=== PATIENT | female | born 1950 | race Caucasian/White ===

== ENCOUNTER 2019-07-12 14:52 | Emergency (ER) | payer MEDICARE, OTHER | END 2019-07-12 17:23 | disposition left against medical advice (07) | LOC: JD.ED 14:52 | DX: Z53.21 Procedure and treatment not carried out due to patient leaving prior to being seen by health care provider (principal) ==

== ENCOUNTER 2023-06-06 18:31 | Emergency (ER) | payer MEDICAID, MEDICARE ==
[2023-06-06 20:03] LABS: BASOPHILS ABSOLUTE AUTO 0.01 K/mm3 (0.01-0.08); BASOPHILS PERCENT AUTO 0.1 % (0.1-1.2); EOSINOPHILS ABSOLUTE AUTO 0.01 K/mm3 (0.04-0.36); EOSINOPHILS PERCENT AUTO 0.1 (0.7-5.8); HEMATOCRIT 40.7 % (34.1-44.9); HEMOGLOBIN 13.1 gm/dl (11.2-15.7); IMMATURE GRAN ABSOLUTE AUTO 0.01 K/mm3 (0.00-0.10); IMMATURE GRAN PERCENT AUTO 0.1 % (<=1.0); LYMPHOCYTES ABSOLUTE AUTO 1.08 K/mm3 (1.18-3.74); MEAN CORPUSCULAR HEMOGLOBIN 27.3 pg (25.6-32.2); MEAN CORPUSCULAR HGB CONC 32.2 g/dl (32.2-35.5); MEAN PLATELET VOLUME 9.9 fl (9.4-12.3); MONOCYTES ABSOLUTE AUTO 0.64 K/mm3 (0.24-0.36); MONOCYTES PERCENT AUTO 8.3 % (4.7-12.5); NEUTROPHILS ABSOLUTE AUTO 5.98 K/mm3 (1.56-6.13); NEUTROPHILS PERCENT AUTO 77.4 % (34.0-71.1); PLATELET COUNT,PLT 328 K/mm3 (182-369); RED BLOOD CELL COUNT 4.79 M/mm3 (3.98-5.22); WHITE BLOOD CELL COUNT,WBC 7.73 K/mm3 (3.98-10.04)
[2023-06-06 20:22] LABS: INR 1.02; PROTHROMBIN TIME 10.9 SECONDS (9.7-12.0)
[2023-06-06 20:24] LABS: PTT,PARTIAL THROMBOPLSTIN TIME 28.3 SECONDS (21.7-31.4)
[2023-06-06 20:27] LABS: A/G RATIO 0.7 (1-2); ALBUMIN 2.9 g/dl (3.4-5.0); ANION GAP 10.8 (5-15); BILIRUBIN TOTAL 0.2 mg/dL (0.2-1.0); CREATININE 0.9 mg/dL (0.55-1.02); EST CRCL DRUG DOSING (CG) 56.56 mL/min; MAGNESIUM 2.2 mg/dL (1.8-2.4); POTASSIUM,K 3.8 mEq/L (3.5-5.1); PROTEIN TOTAL,TP 6.8 g/dl (6.4-8.2)
[2023-06-06 21:02] LABS: D-DIMER QUANTITATIVE 0.94 mg/L (0.19-0.50)
[2023-06-06] MEDS ORDERED: Iopamidol 755 Mg/ML 100 ML Bottle IVPUSH ONE (22:56)
[2023-06-06] MEDS: Sodium Chloride 0.9% 100 ML IV SCH ×2 (22:57→23:31)
== END 2023-06-07 01:51 | disposition home or self-care (01) ==
LOC: JD.ED 18:31
DX: R42 Dizziness and giddiness (principal); R55 Syncope and collapse; J44.9 Chronic obstructive pulmonary disease, unspecified; I25.2 Old myocardial infarction; F17.210 Nicotine dependence, cigarettes, uncomplicated; Z88.6 Allergy status to analgesic agent; Z91.040 Latex allergy status; Z79.51 Long term (current) use of inhaled steroids; Z79.899 Other long term (current) drug therapy
CPT/HCPCS: 36415; 70450; 71045; 71275; 80053; 83735; 84484; 85025; 85379; 85610; 85730; 93005; 96360; 99284; J3490; Q9967; 93010

== ENCOUNTER 2024-10-02 22:12 | Inpatient (IN) | payer MEDICARE, MEDICAID ==
[2024-10-02 22:28] LABS: BASOPHILS ABSOLUTE AUTO 0.1 K/mm3 (0.0-0.2); BASOPHILS PERCENT AUTO 0.6 % (0.0-1.0); EOSINOPHILS ABSOLUTE AUTO 0.1 K/mm3 (0.0-0.4); EOSINOPHILS PERCENT AUTO 0.7 % (0.0-6.0); HEMATOCRIT 32.3 % (37.0-47.0); HEMOGLOBIN 10.2 gm/dl (12.0-16.0); IMMATURE GRAN ABSOLUTE AUTO 0.05 K/mm3 (0.00-0.05); IMMATURE GRAN PERCENT AUTO 0.5 % (0.0-0.4); LYMPHOCYTES ABSOLUTE AUTO 1.9 K/mm3 (1.0-4.8); LYMPHOCYTES PERCENT AUTO 18.1 % (24.0-44.0); MEAN CORPUSCULAR HEMOGLOBIN 28.8 pg (28.0-32.0); MEAN CORPUSCULAR HGB CONC 31.6 g/dl (32.0-36.0); MEAN CORPUSCULAR VOLUME 91.2 fl (83.0-99.0); MEAN PLATELET VOLUME 10.7 fl (9.4-12.3); MONOCYTES ABSOLUTE AUTO 0.7 K/mm3 (0.0-0.8); MONOCYTES PERCENT AUTO 6.6 % (0.0-8.0); NEUTROPHILS ABSOLUTE AUTO 7.9 K/mm3 (1.8-7.7); NEUTROPHILS PERCENT AUTO 73.5 % (41.0-71.0); PLATELET COUNT,PLT 206 K/mm3 (150-400); RED BLOOD CELL COUNT 3.54 M/mm3 (4.10-5.30); WHITE BLOOD CELL COUNT,WBC 10.68 K/mm3 (3.9-11.3)
[2024-10-02 22:46] LABS: INR 1.15; PROTHROMBIN TIME 12.1 SECONDS (9.7-12.0)
[2024-10-02 22:47] LABS: PTT,PARTIAL THROMBOPLSTIN TIME 24.7 SECONDS (21.7-31.4)
[2024-10-02 22:57] LABS: ALBUMIN 2.8 g/dl (3.4-5.0); ANION GAP 16.6 (5-15); BILIRUBIN TOTAL 0.7 mg/dL (0.2-1.0); CREATININE 1.5 mg/dL (0.55-1.02); EST CRCL DRUG DOSING (CG) 30.95 mL/min; MAGNESIUM 1.9 mg/dL (1.8-2.4); POTASSIUM,K 3.6 mEq/L (3.5-5.1); PROTEIN TOTAL,TP 5.5 g/dl (6.4-8.2)
[2024-10-02] MEDS: Sodium Chloride 0.9% 1,000 ML IV ONE (22:59)
[2024-10-02] MEDS: Iopamidol 755 Mg/ML 100 ML Bottle IVPUSH ONE (23:16)
[2024-10-03] MEDS: Sodium Chloride 0.9% 1,000 ML IV ONE (01:24)
[2024-10-03] MEDS: Sodium Chloride 0.9% 1,000 ML IV SCH ×2 (01:28→21:21)
[2024-10-03 03:40] LABS: APPEARANCE,URINE CLOUDY (Clear); BILIRUBIN,URINE NEGATIVE (Negative); COLOR,URINE YELLOW (Yellow); GLUCOSE,URINE NEGATIVE (Negative); KETONES,URINE NEGATIVE (Negative); LEUKOCYTE ESTERASE,URINE 1+ (Negative); NITRITE,URINE NEGATIVE (Negative); OCCULT BLOOD,URINE TRACE-INTACT (Negative); PH,URINE 5.5 (5.0-8.0); PROTEIN,URINE 1+ (Negative); UROBILINOGEN,URINE 0.2 (0.2-1.0)
[2024-10-03 03:47] LABS: RBC,URINE 0-5 /hpf (0-5); WBC,URINE 20-30 /hpf (0-5)
[2024-10-03 03:48] LABS: BACTERIA,URINE MANY /hpf (FEW); MUCUS,URINE NOT SEEN /hpf (FEW)
[2024-10-03] MEDS ORDERED: Sodium Chloride 0.9% 250 ML IV SCH (06:15)
[2024-10-03] MEDS ORDERED: Clopidogrel 75 MG Tab PO SCH (09:15)
[2024-10-03] MEDS ORDERED: cefTRIAXone 1 GM in Sodium Chloride 0.9% 50 ML IV SCH (09:15)
[2024-10-03] MEDS: Venlafaxine 75 MG Cap.ER PO SCH (10:41)
[2024-10-03] MEDS: cefTRIAXone 1 GM Vial IV SCH (10:41)
[2024-10-03 10:56] LABS: ANION GAP 9.6 (5-15); BUN/CREATININE RATIO 22.5 (14-18); CREATININE 1.2 mg/dL (0.55-1.02); EST CRCL DRUG DOSING (CG) 38.3 mL/min; POTASSIUM,K 3.6 mEq/L (3.5-5.1)
[2024-10-03] MEDS: Acetaminophen 325 MG Tab PO PRN (12:12)
[2024-10-03] MEDS: Gabapentin 300 MG Cap PO SCH (14:26)
[2024-10-03] MEDS: Clopidogrel 75 MG Tab PO SCH (14:26)
[2024-10-03 15:45] LABS: TSH 0.369 uIU/mL (0.358-3.74)
[2024-10-03] MEDS: amLODIPine 5 MG Tab PO SCH (21:25)
[2024-10-03] MEDS: Losartan 50 MG Tab PO SCH (21:25)
[2024-10-03] MEDS ORDERED: traZODone 50 MG Tab PO SCH (21:45)
[2024-10-03] MEDS: traZODone 50 MG Tab PO SCH (23:01)
[2024-10-04 04:39] LABS: BASOPHILS PERCENT AUTO 0.2 % (0.0-1.0); EOSINOPHILS ABSOLUTE AUTO 0.1 K/mm3 (0.0-0.4); EOSINOPHILS PERCENT AUTO 0.7 % (0.0-6.0); HEMATOCRIT 21.7 % (37.0-47.0); IMMATURE GRAN ABSOLUTE AUTO 0.04 K/mm3 (0.00-0.05); IMMATURE GRAN PERCENT AUTO 0.4 % (0.0-0.4); LYMPHOCYTES ABSOLUTE AUTO 1.3 K/mm3 (1.0-4.8); LYMPHOCYTES PERCENT AUTO 12.4 % (24.0-44.0); MEAN CORPUSCULAR HEMOGLOBIN 29.3 pg (28.0-32.0); MEAN CORPUSCULAR HGB CONC 32.7 g/dl (32.0-36.0); MEAN CORPUSCULAR VOLUME 89.7 fl (83.0-99.0); MEAN PLATELET VOLUME 11.2 fl (9.4-12.3); MONOCYTES ABSOLUTE AUTO 0.8 K/mm3 (0.0-0.8); MONOCYTES PERCENT AUTO 7.6 % (0.0-8.0); NEUTROPHILS PERCENT AUTO 78.7 % (41.0-71.0); PLATELET COUNT,PLT 140 K/mm3 (150-400); RED BLOOD CELL COUNT 2.42 M/mm3 (4.10-5.30)
[2024-10-04 05:01] LABS: ALBUMIN 2.4 g/dl (3.4-5.0); ANION GAP 9.5 (5-15); BILIRUBIN TOTAL 0.6 mg/dL (0.2-1.0); BUN/CREATININE RATIO 27.8 (14-18); CALCIUM 7.6 mg/dL (8.5-10.1); CREATININE 0.9 mg/dL (0.55-1.02); EST CRCL DRUG DOSING (CG) 51.07 mL/min; POTASSIUM,K 3.5 mEq/L (3.5-5.1); PROTEIN TOTAL,TP 4.9 g/dl (6.4-8.2)
[2024-10-04 05:44] LABS: HEMOGLOBIN 7.1 gm/dl (12.0-16.0)
[2024-10-04] MEDS: Levothyroxine 75 MCG Tab PO SCH (06:49)
[2024-10-04] MEDS ORDERED: Enoxaparin 30 MG/0.3 ML Syringe SUBCUT SCH (09:00)
[2024-10-04] MEDS: Enoxaparin 40 MG/0.4 ML Syringe SUBCUT SCH (09:00)
[2024-10-04] MEDS: Rosuvastatin 10 MG Tab PO SCH (10:46)
[2024-10-04 11:50] LABS: HEMATOCRIT 22.4 % (37.0-47.0)
[2024-10-04 11:54] LABS: HEMOGLOBIN 7.1 gm/dl (12.0-16.0)
[2024-10-04] MEDS ORDERED: LORazepam 1 MG Tab PO ONE (13:44)
[2024-10-04] MEDS: LORazepam 2 MG/ML SDV IVPUSH ONE ×2 (13:55→15:00)
[2024-10-04] MEDS ORDERED: Sodium Chloride 0.9% 10 ML Syringe FLUSH SCH (14:00)
[2024-10-04] MEDS ORDERED: LORazepam 0.5 MG Tab PO ONE (14:00)
[2024-10-04 18:31] LABS: HEMATOCRIT 20.9 % (37.0-47.0)
[2024-10-04 18:36] LABS: HEMOGLOBIN 6.7 gm/dl (12.0-16.0)
[2024-10-04] MEDS: Gadobenate Dimeglumine 529 MG/ML 15 ML SDV IVPUSH ONE (21:03)
[2024-10-05 07:23] LABS: BASOPHILS PERCENT AUTO 0.5 % (0.0-1.0); EOSINOPHILS ABSOLUTE AUTO 0.2 K/mm3 (0.0-0.4); HEMATOCRIT 26.2 % (37.0-47.0); IMMATURE GRAN ABSOLUTE AUTO 0.03 K/mm3 (0.00-0.05); IMMATURE GRAN PERCENT AUTO 0.4 % (0.0-0.4); LYMPHOCYTES ABSOLUTE AUTO 1.2 K/mm3 (1.0-4.8); MEAN CORPUSCULAR HEMOGLOBIN 29.2 pg (28.0-32.0); MEAN CORPUSCULAR HGB CONC 32.4 g/dl (32.0-36.0); MEAN PLATELET VOLUME 11.4 fl (9.4-12.3); MONOCYTES ABSOLUTE AUTO 0.7 K/mm3 (0.0-0.8); MONOCYTES PERCENT AUTO 9.1 % (0.0-8.0); NEUTROPHILS ABSOLUTE AUTO 5.5 K/mm3 (1.8-7.7); PLATELET COUNT,PLT 118 K/mm3 (150-400); RED BLOOD CELL COUNT 2.91 M/mm3 (4.10-5.30); WHITE BLOOD CELL COUNT,WBC 7.69 K/mm3 (3.9-11.3)
[2024-10-05 07:32] LABS: A/G RATIO 0.9 (1-2); ALBUMIN 2.5 g/dl (3.4-5.0); ANION GAP 8.5 (5-15); BILIRUBIN TOTAL 1.5 mg/dL (0.2-1.0); CALCIUM 8.1 mg/dL (8.5-10.1); CREATININE 0.7 mg/dL (0.55-1.02); EST CRCL DRUG DOSING (CG) 66.33 mL/min; POTASSIUM,K 3.5 mEq/L (3.5-5.1); PROTEIN TOTAL,TP 5.4 g/dl (6.4-8.2)
[2024-10-05 07:37] LABS: IRON,FE 31 ug/dL (50-170); PERCENT FE SATURATION 19 % (20-55); TOTAL IRON BINDING CAPACITY 165 ug/dL (100-400); TRANSFERRIN 132 mg/dL (202-364)
[2024-10-05 07:46] LABS: HEMOGLOBIN 8.5 gm/dl (12.0-16.0)
[2024-10-05] MEDS: Sodium Ferric Gluconate Cmplex 125 MG in Sodium Chloride 0.9% 100 ML IV ONE (10:19)
[2024-10-05] MEDS: Gadobenate Dimeglumine 529 MG/ML 15 ML SDV IVPUSH ONE (11:57)
[2024-10-05] MEDS: Sodium Chloride 0.9% 10 ML Syringe FLUSH ONE (11:58)
[2024-10-05] MEDS ORDERED: Meclizine 25 MG Tab PO PRN (19:21)
[2024-10-06 08:30] LABS: BASOPHILS ABSOLUTE AUTO 0.1 K/mm3 (0.0-0.2); BASOPHILS PERCENT AUTO 0.7 % (0.0-1.0); EOSINOPHILS ABSOLUTE AUTO 0.2 K/mm3 (0.0-0.4); EOSINOPHILS PERCENT AUTO 2.5 % (0.0-6.0); HEMATOCRIT 23.8 % (37.0-47.0); HEMOGLOBIN 8.3 gm/dl (12.0-16.0); IMMATURE GRAN ABSOLUTE AUTO 0.05 K/mm3 (0.00-0.05); IMMATURE GRAN PERCENT AUTO 0.7 % (0.0-0.4); LYMPHOCYTES ABSOLUTE AUTO 1.4 K/mm3 (1.0-4.8); LYMPHOCYTES PERCENT AUTO 18.4 % (24.0-44.0); MEAN CORPUSCULAR HEMOGLOBIN 29.4 pg (28.0-32.0); MEAN CORPUSCULAR HGB CONC 34.9 g/dl (32.0-36.0); MEAN CORPUSCULAR VOLUME 84.4 fl (83.0-99.0); MEAN PLATELET VOLUME 10.8 fl (9.4-12.3); MONOCYTES ABSOLUTE AUTO 0.6 K/mm3 (0.0-0.8); MONOCYTES PERCENT AUTO 7.3 % (0.0-8.0); NEUTROPHILS ABSOLUTE AUTO 5.3 K/mm3 (1.8-7.7); NEUTROPHILS PERCENT AUTO 70.4 % (41.0-71.0); PLATELET COUNT,PLT 162 K/mm3 (150-400); RED BLOOD CELL COUNT 2.82 M/mm3 (4.10-5.30); WHITE BLOOD CELL COUNT,WBC 7.55 K/mm3 (3.9-11.3)
[2024-10-06] MEDS: Polyethylene Glycol 3350 Powder 17 GM Packet PO PRN (08:57)
[2024-10-06] MEDS: Iron Polysaccharides Complex 150 MG Cap PO SCH (09:39)
[2024-10-06] MEDS ORDERED: Acetaminophen 325 MG Tab PO ONE (10:32)
[2024-10-06] MEDS: Cholecalciferol (Vitamin D3) 5,000 UNIT Cap PO SCH (11:40)
[2024-10-08] MEDS: Cefdinir 300 MG Cap PO SCH (08:48)
[2024-10-08] MEDS ORDERED: Cefdinir 125 MG/5 ML Susp 100 ML Bottle PO SCH (09:00)
[2024-10-08] MEDS: Clopidogrel 75 MG Tab PO SCH (13:55)
[2024-10-08] MEDS: Nicotine 14 MG/24 Hr Patch TRDERM SCH (18:36)
[2024-10-09 11:32] LABS: MEAN CORPUSCULAR HEMOGLOBIN 29.6 pg (28.0-32.0); MEAN CORPUSCULAR HGB CONC 30.9 g/dl (32.0-36.0); MEAN PLATELET VOLUME 10.2 fl (9.4-12.3); RED BLOOD CELL COUNT 3.35 M/mm3 (4.10-5.30); WHITE BLOOD CELL COUNT,WBC 9.08 K/mm3 (3.9-11.3)
[2024-10-09 11:33] LABS: HEMOGLOBIN 9.9 gm/dl (12.0-16.0); MEAN CORPUSCULAR VOLUME 95.5 fl (83.0-99.0); PLATELET COUNT,PLT 254 K/mm3 (150-400)
[2024-10-10] MEDS: Haloperidol 0.5 MG Tab PO SCH (20:37)
[2024-10-10] MEDS: Topiramate 25 MG Tab PO SCH (20:37)
[2024-10-10] MEDS: Cyanocobalamin (Vitamin B12) 1,000 MCG Tab PO SCH (20:40)
[2024-10-11] MEDS ORDERED: Haloperidol 0.5 MG Tab PO SCH (07:17)
[2024-10-11] MEDS: Haloperidol Lactate 5 MG/ML SDV ONE (07:31)
[2024-10-11] MEDS: Folic Acid 1 MG Tab PO SCH (09:37)
[2024-10-11] MEDS: Haloperidol 0.5 MG Tab PO SCH (09:41)
[2024-10-11] MEDS: Vitamin B6-pyridOXINE 50 MG Tab PO SCH (09:41)
[2024-10-11] MEDS: Memantine 10 MG Tab PO SCH (10:56)
[2024-10-12 07:10] LABS: BASOPHILS PERCENT AUTO 0.3 % (0.0-1.0); EOSINOPHILS ABSOLUTE AUTO 0.2 K/mm3 (0.0-0.4); EOSINOPHILS PERCENT AUTO 1.3 % (0.0-6.0); HEMATOCRIT 34.1 % (37.0-47.0); HEMOGLOBIN 10.1 gm/dl (12.0-16.0); IMMATURE GRAN ABSOLUTE AUTO 0.07 K/mm3 (0.00-0.05); IMMATURE GRAN PERCENT AUTO 0.6 % (0.0-0.4); LYMPHOCYTES ABSOLUTE AUTO 1.1 K/mm3 (1.0-4.8); LYMPHOCYTES PERCENT AUTO 9.3 % (24.0-44.0); MEAN CORPUSCULAR HEMOGLOBIN 29.3 pg (28.0-32.0); MEAN CORPUSCULAR HGB CONC 29.6 g/dl (32.0-36.0); MEAN PLATELET VOLUME 9.8 fl (9.4-12.3); MONOCYTES ABSOLUTE AUTO 0.9 K/mm3 (0.0-0.8); MONOCYTES PERCENT AUTO 7.3 % (0.0-8.0); NEUTROPHILS ABSOLUTE AUTO 9.7 K/mm3 (1.8-7.7); NEUTROPHILS PERCENT AUTO 81.2 % (41.0-71.0); PLATELET COUNT,PLT 325 K/mm3 (150-400); RED BLOOD CELL COUNT 3.45 M/mm3 (4.10-5.30); WHITE BLOOD CELL COUNT,WBC 11.98 K/mm3 (3.9-11.3)
[2024-10-12 07:20] LABS: MEAN CORPUSCULAR VOLUME 98.8 fl (83.0-99.0)
[2024-10-12 08:02] LABS: A/G RATIO 0.9 (1-2); ALBUMIN 2.9 g/dl (3.4-5.0); ANION GAP 13.7 (5-15); BILIRUBIN TOTAL 1.2 mg/dL (0.2-1.0); CALCIUM 8.7 mg/dL (8.5-10.1); EST CRCL DRUG DOSING (CG) 46.43 mL/min; MAGNESIUM 2.1 mg/dL (1.8-2.4); POTASSIUM,K 3.7 mEq/L (3.5-5.1); PROTEIN TOTAL,TP 6.3 g/dl (6.4-8.2)
[2024-10-13 06:14] LABS: BASOPHILS PERCENT AUTO 0.5 % (0.0-1.0); EOSINOPHILS ABSOLUTE AUTO 0.2 K/mm3 (0.0-0.4); EOSINOPHILS PERCENT AUTO 2.9 % (0.0-6.0); HEMOGLOBIN 9.3 gm/dl (12.0-16.0); IMMATURE GRAN ABSOLUTE AUTO 0.03 K/mm3 (0.00-0.05); IMMATURE GRAN PERCENT AUTO 0.4 % (0.0-0.4); LYMPHOCYTES ABSOLUTE AUTO 1.9 K/mm3 (1.0-4.8); LYMPHOCYTES PERCENT AUTO 22.4 % (24.0-44.0); MEAN CORPUSCULAR HEMOGLOBIN 29.7 pg (28.0-32.0); MEAN CORPUSCULAR HGB CONC 32.1 g/dl (32.0-36.0); MEAN PLATELET VOLUME 9.7 fl (9.4-12.3); MONOCYTES ABSOLUTE AUTO 0.7 K/mm3 (0.0-0.8); MONOCYTES PERCENT AUTO 8.9 % (0.0-8.0); NEUTROPHILS ABSOLUTE AUTO 5.4 K/mm3 (1.8-7.7); NEUTROPHILS PERCENT AUTO 64.9 % (41.0-71.0); PLATELET COUNT,PLT 289 K/mm3 (150-400); RED BLOOD CELL COUNT 3.13 M/mm3 (4.10-5.30); WHITE BLOOD CELL COUNT,WBC 8.27 K/mm3 (3.9-11.3)
[2024-10-13 07:17] LABS: MEAN CORPUSCULAR VOLUME 92.7 fl (83.0-99.0)
[2024-10-18] MEDS ORDERED: Labetalol 100 MG/20 ML MDV IVPUSH PRN (08:35)
[2024-10-18] MEDS ORDERED: hydrALAZINE 20 MG/ML SDV IVPUSH PRN (08:35)
[2024-10-24] MEDS: Polyethylene Glycol 3350 Powder 17 GM Packet PO SCH (14:31)
[2024-11-03] MEDS: Acetaminophen 325 MG Tab PO PRN (15:18)
[2024-11-04] MEDS: amLODIPine 5 MG Tab PO SCH (09:16)
[2024-11-04] MEDS: Losartan 50 MG Tab PO SCH (09:16)
== END 2024-11-07 11:06 | DRG 149 ==
LOC: JD.ED 22:12 → JD.MS 10-03 09:02
PROVIDERS: ADMIT Family Medicine; ATTEND Family Medicine
PROC: 30233N1 Transfusion of Nonautologous Red Blood Cells into Peripheral Vein, Percutaneous Approach (ICD-10-PCS; principal; 2024-10-04)
DX: H81.10 Benign paroxysmal vertigo, unspecified ear (principal); F03.911 Unspecified dementia, unspecified severity, with agitation; F31.60 Bipolar disorder, current episode mixed, unspecified; N17.9 Acute kidney failure, unspecified; Z79.890 Hormone replacement therapy; Z88.6 Allergy status to analgesic agent; N30.01 Acute cystitis with hematuria; R45.851 Suicidal ideations; R44.3 Hallucinations, unspecified; F03.93 Unspecified dementia, unspecified severity, with mood disturbance; J44.9 Chronic obstructive pulmonary disease, unspecified; I95.9 Hypotension, unspecified; E86.0 Dehydration; G47.00 Insomnia, unspecified; E78.00 Pure hypercholesterolemia, unspecified; E03.9 Hypothyroidism, unspecified; R33.9 Retention of urine, unspecified; R00.1 Bradycardia, unspecified; D50.9 Iron deficiency anemia, unspecified; D63.1 Anemia in chronic kidney disease; N18.2 Chronic kidney disease, stage 2 (mild); I12.9 Hypertensive chronic kidney disease with stage 1 through stage 4 chronic kidney disease, or unspecified chronic kidney disease; E55.9 Vitamin D deficiency, unspecified; Z79.01 Long term (current) use of anticoagulants; Z88.8 Allergy status to other drugs, medicaments and biological substances; Z91.040 Latex allergy status; Z86.73 Personal history of transient ischemic attack (TIA), and cerebral infarction without residual deficits; Z79.51 Long term (current) use of inhaled steroids; Z79.899 Other long term (current) drug therapy; Z79.02 Long term (current) use of antithrombotics/antiplatelets; Z86.16 Personal history of COVID-19
CPT/HCPCS: 36415; 36430; 51701; 51702; 51798; 70450; 70450-26; 70553; 70553-26; 71275; 71275-26; 72125; 72125-26; 72128; 72128-26; 72131; 72131-26; 73502-26-LT; 73502-LT; 73560-26-LT; 73560-LT; 80048; 80053; 81001; 82272; 82306; 82607; 82728; 82746; 83540; 83690; 83735; 83880; 84443; 84466; 84484; 85014; 85018; 85025; 85027; 85610; 85730; 86850; 86900; 86901; 86922; 87086; 87088; 87186; 93005; 93010; 93306; 93880; 93880-26; 94760; 96360; 96361; 97110-GP; 97116-GP; 97161-GP; 97530-GP; 99283; 99285-25; A9270-GY; A9577; C1758; J0696; J1630; J1650; J2060; J2916; J7030; P9016; Q3014; Q9967